=== PATIENT | female | born 1935 | race African-American/Black ===

== ENCOUNTER 2016-12-08 12:18 | Inpatient (IN) | payer MEDICARE, BC, MEDICAID ==
[~2016-12-08] VITALS: Ht 160 cm; Wt 55.3 kg
[~2016-12-08 12:18] MED LIST: AMLO5TAB4 PO; ASPI-867 PO; RIVA1PAT3 TD
[2016-12-08] MEDS ORDERED: SODIUM CHLORIDE 0.9% 1,000 ML IV ONE (14:05)
[2016-12-08] MEDS ORDERED: MORPHINE SULFATE 2 MG/ML CPJ (NOT FOR IM USE) IV ONE (14:15)
[2016-12-08 14:32] LABS: BASOPHILS % 0.4 % (0.0-2.0); EOSINOPHILS % 0.6 % (0.0-5.0); HEMATOCRIT. 33.5 % (36.0-48.0); HEMOGLOBIN. 10.8 g/dL (12.0-16.0); MEAN CORPUSCULAR HEMOGLOBIN 27.4 pg (28.0-32.0); MONOCYTES % 8.1 % (2.0-8.0); NEUTROPHILS % 74.9 % (40.0-76.0); PLATELET 251 x1000/uL (130-400); RED BLOOD CELL COUNT 3.94 mill/uL (4.2-5.4); RED CELL DISTRIBUTION WIDTH 16.6 % (11.6-14.6)
[2016-12-08 14:37] LABS: PARTIAL THROMBOPLASTIN TIME 25.7 sec (23.4-31.0); PROTHROMBIN TIME 10.9 sec (9.4-11.6)
[2016-12-08 14:41] LABS: CARBON DIOXIDE 28 mEq/L (21-32); CHLORIDE 108 mEq/L (98-107)
[2016-12-08 14:48] LABS: CREATINE KINASE MB FRACTION 0.9 ng/mL (0.5-3.6); TROPONIN I < 0.02 ng/mL (0.00-0.04)
[2016-12-08] MEDS ORDERED: ACETAMINOPHEN 325MG TABLET PO PRN (16:45)
[2016-12-08] MEDS ORDERED: CLONIDINE 0.1MG TABLET PO PRN (16:45)
[2016-12-08] MEDS ORDERED: ONDANSETRON HCL 4MG/2ML VIAL IV PRN (16:45)
[2016-12-08] MEDS ORDERED: DOCUSATE SODIUM 100MG CAPSULE PO PRN (16:45)
[2016-12-08] MEDS ORDERED: ASPIRIN 325MG EC TABLET PO ONE (17:00)
[2016-12-08] MEDS: DEXT 5%/0.45% NACL 1000ML 1,000 ML IV SCH (17:03)
[2016-12-08 22:30] VITALS: BP 155/89
[2016-12-08 22:42] VITALS: BP 155/89
[2016-12-08] MEDS ORDERED: TRAV2.5D BOTHEYE (23:33)
[2016-12-08] MEDS ORDERED: BRIM10DR2 OP (23:35)
[2016-12-08] MEDS ORDERED: NITR0.4T49 SL (23:38)
[2016-12-09] VITALS (10 sets, daily range): BP systolic 99–174; BP diastolic 57–83
[2016-12-09 00:46] LABS: CREATINE KINASE 87 IU/L (26-192); TROPONIN I < 0.02 ng/mL (0.00-0.04)
[2016-12-09] MEDS: DEXT 5%/0.45% NACL 1000ML 1,000 ML IV SCH (05:33)
[2016-12-09 07:40] LABS: CHLORIDE 106 mEq/L (98-107)
[2016-12-09 07:55] LABS: BASOPHILS % 0.2 % (0.0-2.0); EOSINOPHILS % 1.5 % (0.0-5.0); HEMATOCRIT. 32.9 % (36.0-48.0); HEMOGLOBIN. 10.8 g/dL (12.0-16.0); MEAN CORPUSCULAR HEMOGLOBIN 27.9 pg (28.0-32.0); MEAN CORPUSCULAR VOLUME 84.8 fL (81.0-99.0); MEAN PLATELET VOLUME 8.6 fl (7.4-10.4); MONOCYTES % 6.9 % (2.0-8.0); NEUTROPHILS % 80.4 % (40.0-76.0); PLATELET 231 x1000/uL (130-400); RED BLOOD CELL COUNT 3.88 mill/uL (4.2-5.4); RED CELL DISTRIBUTION WIDTH 16.2 % (11.6-14.6)
[2016-12-09 08:01] LABS: CARBON DIOXIDE 25 mEq/L (21-32); CREATINE KINASE 85 IU/L (26-192); HDL CHOLESTEROL 81 mg/dL (40-59); LDL CHOLESTEROL 90 mg/dL (5-100); T4 FREE 0.93 ng/dL (0.76-1.46); TROPONIN I 0.02 ng/mL (0.00-0.04)
[2016-12-09] MEDS ORDERED: ASPIRIN 81MG EC TABLET PO SCH (09:00)
[2016-12-09] MEDS ORDERED: NITROGLYCERIN 0.4MG TABLET SL SL PRN ×2 (12:15→14:30)
[2016-12-09] MEDS ORDERED: NITROGLYCERIN 0.4MG TABLET SL SL ONE (17:00)
[2016-12-09] MEDS: NITROGLYCERIN 0.4MG TABLET SL SL SCH (18:08)
[2016-12-09] MEDS: LATANOPROST 0.005% OPHTH DROPS 2.5ML EACHEYE SCH (18:08)
[2016-12-10] VITALS (9 sets, daily range): BP systolic 113–158; BP diastolic 60–87
[2016-12-10] MEDS: DEXT 5%/0.45% NACL 1000ML 1,000 ML IV SCH ×2 (01:07→21:43)
[2016-12-10] MEDS: ASPIRIN 325MG EC TABLET PO SCH (08:44)
[2016-12-10] MEDS: AMLODIPINE 5MG TABLET PO SCH (08:44)
[2016-12-10] MEDS: RIVASTIGMINE 4.6 MG/24 HR TD PATCH TD SCH (08:45)
[2016-12-10] MEDS ORDERED: NITROGLYCERIN 0.4MG TABLET SL SL SCH (11:45)
[2016-12-10] MEDS: LATANOPROST 0.005% OPHTH DROPS 2.5ML EACHEYE SCH (17:00)
[2016-12-10] MEDS: NITROGLYCERIN 0.4MG TABLET SL SL SCH (17:47)
[2016-12-10] MEDS: COMBIGAN 0.2%-0.5% OP SCH (21:43)
[2016-12-11] VITALS: BP 135/76
[2016-12-11 04:00] VITALS: BP 116/61
[2016-12-11 07:23] LABS: HEMATOCRIT. 30.4 % (36.0-48.0); MEAN CORPUSCULAR HEMOGLOBIN 27.8 pg (28.0-32.0); MEAN CORPUSCULAR VOLUME 84.4 fL (81.0-99.0); MEAN PLATELET VOLUME 8.8 fl (7.4-10.4); PLATELET 209 x1000/uL (130-400); RED CELL DISTRIBUTION WIDTH 15.6 % (11.6-14.6)
[2016-12-11 08:10] LABS: CARBON DIOXIDE 26 mEq/L (21-32); CHLORIDE 105 mEq/L (98-107); TROPONIN I < 0.02 ng/mL (0.00-0.04)
[2016-12-11] MEDS ORDERED: RIVASTIGMINE 9.5MG/24HR PATCH TD SCH (09:00)
[2016-12-11] MEDS: ASPIRIN 325MG EC TABLET PO SCH (10:02)
[2016-12-11] MEDS: COMBIGAN 0.2%-0.5% OP SCH (10:03)
[2016-12-11] MEDS: AMLODIPINE 5MG TABLET PO SCH (10:03)
[2016-12-11] MEDS: RIVASTIGMINE 4.6 MG/24 HR TD PATCH TD SCH (10:04)
[2016-12-11 12:33] VITALS: BP 147/78
[2016-12-11 16:17] LABS: PLATELET ESTIMATE NORMAL
== END 2016-12-11 13:05 | disposition home or self-care (01) | DRG 74 ==
LOC: ER 12:51 → EDBEDREQ 14:10 → 5WST 16:24 → EDBEDREQTM 16:26 → EDBEDREQ 16:26 → ENRESERV 21:08
PROVIDERS: ADMIT Hospitalist; ATTEND Hospitalist
DX: G90.8 Other disorders of autonomic nervous system (principal); F03.90 Unspecified dementia, unspecified severity, without behavioral disturbance, psychotic disturbance, mood disturbance, and anxiety; I11.9 Hypertensive heart disease without heart failure; E44.1 Mild protein-calorie malnutrition; I10 Essential (primary) hypertension; R55 Syncope and collapse; F45.8 Other somatoform disorders; D64.9 Anemia, unspecified; M16.0 Bilateral primary osteoarthritis of hip; R53.1 Weakness; R20.0 Anesthesia of skin; R26.81 Unsteadiness on feet; R19.7 Diarrhea, unspecified; R63.0 Anorexia; R00.1 Bradycardia, unspecified; Z68.21 Body mass index [BMI] 21.0-21.9, adult; Z85.01 Personal history of malignant neoplasm of esophagus; Z85.028 Personal history of other malignant neoplasm of stomach; Z86.73 Personal history of transient ischemic attack (TIA), and cerebral infarction without residual deficits; Z88.2 Allergy status to sulfonamides; Z98.84 Bariatric surgery status; Z88.8 Allergy status to other drugs, medicaments and biological substances; Z79.82 Long term (current) use of aspirin
CPT/HCPCS: 36415; 70450; 70544; 70553; 71010; 72192; 73080; 73090; 73502; 80048; 80053; 80061; 82550; 82553; 83735; 84439; 84443; 84484; 85025; 85610; 85730; 93005; 93306; 93880; 96361; 96374; 97116; 97162; 97166; 97535; 99285; J2270; J7030

== ENCOUNTER 2016-12-16 13:03 | Emergency (ER) | payer MEDICARE, BC, MEDICAID ==
[~2016-12-16] VITALS: Ht 167.6 cm; Wt 70.0 kg
[~2016-12-16 13:03] MED LIST changes: +BRIM10DR2 OP; +NITR0.4T49 SL; +TRAV2.5D BOTHEYE
[2016-12-16] MEDS ORDERED: SODIUM CHLORIDE 0.9% 1,000 ML IV ONE (13:26)
[2016-12-16 14:28] LABS: BASOPHILS % 0.7 % (0.0-2.0); EOSINOPHILS % 1.8 % (0.0-5.0); HEMATOCRIT. 28.7 % (36.0-48.0); HEMOGLOBIN. 9.4 g/dL (12.0-16.0); LYMPHOCYTES % 15.3 % (20.0-50.0); MEAN CORPUSCULAR HEMOGLOBIN 27.7 pg (28.0-32.0); MEAN CORPUSCULAR VOLUME 84.5 fL (81.0-99.0); MEAN PLATELET VOLUME 8.8 fl (7.4-10.4); MONOCYTES % 11.3 % (2.0-8.0); NEUTROPHILS % 70.9 % (40.0-76.0); PLATELET 298 x1000/uL (130-400); RED CELL DISTRIBUTION WIDTH 15.6 % (11.6-14.6)
[2016-12-16 14:30] LABS: INR 1.1; PROTHROMBIN TIME 11.1 sec (9.4-11.6)
[2016-12-16 14:38] LABS: CARBON DIOXIDE 30 mEq/L (21-32); CHLORIDE 103 mEq/L (98-107); TROPONIN I < 0.02 ng/mL (0.00-0.04)
[2016-12-16 15:32] VITALS: BP 155/88
== END 2016-12-16 15:49 | disposition home or self-care (01) ==
LOC: ER 13:03
DX: T46.3X5A Adverse effect of coronary vasodilators, initial encounter (principal); R55 Syncope and collapse; Z79.82 Long term (current) use of aspirin; Z88.2 Allergy status to sulfonamides; Y92.89 Other specified places as the place of occurrence of the external cause
CPT/HCPCS: 36415; 71010; 80053; 83880; 84484; 85025; 85610; 93005; 96360; 96361; 99285; J7030